=== PATIENT | female | born 1990 | race Caucasian/White ===

== ENCOUNTER 2020-02-17 20:44 | Emergency (ER) | payer OTHER ==
[~2020-02-17] VITALS: Ht 167.6 cm; Wt 69.9 kg
[2020-02-17 20:55] VITALS: BP_SYST 127
[2020-02-17 21:28] VITALS: BP_SYST 122
== END 2020-02-17 21:28 | disposition home or self-care (01) ==
LOC: SED 20:44
DX: G43.909 Migraine, unspecified, not intractable, without status migrainosus (principal)
CPT/HCPCS: 99283

== ENCOUNTER 2020-03-29 14:30 | Emergency (ER) | payer OTHER ==
[~2020-03-29] VITALS: Ht 170.2 cm; Wt 73.5 kg
--- NOTE | 2020-03-29 14:30 | NUR ---
Patient to ER bed 4 to gown for evaluation. Side rails up.
--- NOTE | 2020-03-29 14:33 | NUR ---
ER at bedside examining patient.
--- NOTE | 2020-03-29 14:35 | NUR ---
Pt presents to the ER for migraine, pain 10/10 w/ photophobia. Pt requesting stadol refill. Pt stable, vitals WNL.
[2020-03-29 14:53] VITALS: BP_SYST 130
[2020-03-29 15:06] VITALS: BP_SYST 130
--- NOTE | 2020-03-29 15:06 | NUR ---
Patient given written and verbal discharge instructions and verbalizes understanding. ER MD discussed with patient the results and treatment provided. Patient in stable condition. ID arm band removed. Rx of Stadol and Robitussin given. Patient educated on pain management and to follow up with PMD. Pain Scale 10/10 Opportunity for questions provided and answered. Medication side effect fact sheet provided.
== END 2020-03-29 15:06 | disposition home or self-care (01) ==
LOC: SED 14:30
DX: G43.909 Migraine, unspecified, not intractable, without status migrainosus (principal); R05 Cough; Z76.0 Encounter for issue of repeat prescription
CPT/HCPCS: 99282; J7030

== ENCOUNTER 2020-04-14 14:44 | Emergency (ER) | payer OTHER ==
[~2020-04-14] VITALS: Ht 167.6 cm; Wt 72.6 kg
--- NOTE | 2020-04-14 14:50 | NUR ---
Patient to ER bed 06 to gown for evaluation. Side rails up.
--- NOTE | 2020-04-14 14:52 | NUR ---
Patient arrived in the ED c/o headaches, nausea, vomiting and cough for the last few weeks. Denied any chest pain or shortness of breath. Denied any fevers and chills. Patient is alert and oriented x4, respirations even and unlabored, speaking in full sentences, and ambulating with a steady gait. VSS, pain level 8/10. Informed of the approximate wait time. Instructed to notify ED staff for any changes in condition or worsening of symptoms. Patient verbalized understanding.
[2020-04-14 15:02] VITALS: BP_SYST 112
--- NOTE | 2020-04-14 15:06 | NUR ---
BLAIR Pollock at bedside examining patient.
--- NOTE | 2020-04-14 15:13 | NUR ---
Administered Morphine Sulfate IM as ordered by Dr. Pollock. Patient tolerated the medications well. See eMAR for details.
[2020-04-14] MEDS ORDERED: MORPHINE 4 MG/ML INJ. SYRINGE IM ONE (15:15)
[2020-04-14 15:20] VITALS: BP_SYST 112
--- NOTE | 2020-04-14 15:20 | NUR ---
Patient given written and verbal discharge instructions and verbalizes understanding. ER MD discussed with patient the results and treatment provided. Patient in stable condition. ID arm band removed. Rx of Ibuprofen given. Patient educated on pain management and to follow up with PMD. Pain Scale 2/10. Opportunity for questions provided and answered. Medication side effect fact sheet provided.
== END 2020-04-14 15:20 | disposition home or self-care (01) ==
LOC: SED 14:44
DX: G43.901 Migraine, unspecified, not intractable, with status migrainosus (principal)
CPT/HCPCS: 96372; 99283; J2270

== ENCOUNTER 2020-04-18 20:16 | Emergency (ER) | payer OTHER ==
[~2020-04-18] VITALS: Ht 167.6 cm; Wt 70.8 kg
[2020-04-18 20:20] VITALS: BP_SYST 124
[2020-04-18] MEDS ORDERED: MORPHINE 4 MG/ML INJ. SYRINGE IVP ONE (20:45)
[2020-04-18] MEDS ORDERED: ONDANSETRON HCL 4 MG/2 ML VIAL IVP ONE (20:45)
[2020-04-18] MEDS ORDERED: SUMAtriptan SUCCINATE 50 MG TABLET PO ONE (20:45)
[2020-04-18] MEDS ORDERED: DIPHENHYDRAMINE INJ 50 MG/ML VIAL IVP ONE (21:15)
[2020-04-18 21:30] VITALS: BP_SYST 132
[2020-04-18] MEDS ORDERED: SUMAtriptan SUCCINATE 50 MG TABLET ONE (21:40)
== END 2020-04-18 21:30 | disposition home or self-care (01) ==
LOC: SED 20:16
DX: G43.901 Migraine, unspecified, not intractable, with status migrainosus (principal)
CPT/HCPCS: 96374; 96375; 99284; J1200; J2270; J2405

== ENCOUNTER 2020-11-30 04:11 | Emergency (ER) | payer OTHER ==
[~2020-11-30] VITALS: Ht 170.2 cm; Wt 71.7 kg
[2020-11-30 05:00] VITALS: BP_SYST 124
[2020-11-30 06:21] VITALS: BP_SYST 125
== END 2020-11-30 06:21 | disposition home or self-care (01) ==
LOC: SED 04:11
DX: G43.909 Migraine, unspecified, not intractable, without status migrainosus (principal); R05 Cough; Z88.1 Allergy status to other antibiotic agents
CPT/HCPCS: 99283

== ENCOUNTER 2020-12-04 20:25 | Emergency (ER) | payer OTHER ==
[~2020-12-04] VITALS: Ht 170.2 cm; Wt 63.5 kg
[2020-12-04 20:49] VITALS: BP_SYST 120
[2020-12-04 21:13] VITALS: BP_SYST 120
== END 2020-12-04 21:13 | disposition home or self-care (01) ==
LOC: SED 20:25
DX: Z76.0 Encounter for issue of repeat prescription (principal); Z88.1 Allergy status to other antibiotic agents
CPT/HCPCS: 99281

== ENCOUNTER 2020-12-26 02:05 | Emergency (ER) | payer OTHER ==
[~2020-12-26] VITALS: Ht 170.2 cm; Wt 71.7 kg
[2020-12-26 02:30] VITALS: BP_SYST 131
--- NOTE | 2020-12-26 02:33 | NUR ---
ER Dr. Roa at bedside examining patient. after examination patient walked out of emergency room.
== END 2020-12-26 02:23 | disposition left against medical advice (07) ==
LOC: SED 02:05
DX: Z76.0 Encounter for issue of repeat prescription (principal); Z88.1 Allergy status to other antibiotic agents
CPT/HCPCS: 99281

== ENCOUNTER 2020-12-26 23:39 | Emergency (ER) | payer OTHER ==
[~2020-12-26] VITALS: Ht 170.2 cm; Wt 71.7 kg
[2020-12-26 23:40] VITALS: BP_SYST 122
--- NOTE | 2020-12-26 23:40 | NUR ---
Received patient to Er w/ c/o cough and requesting medication refill. Patient seen yesterday for similar c/o but had eloped after being examined by ER MD. Introduced self to patient, positioned for comfort, continue to monitor. Patient resting quietly. No acute distress noted. Vital signs within normal range.
--- NOTE | 2020-12-26 23:45 | NUR ---
PT TO BED 5 FOR EVALUATION
--- NOTE | 2020-12-27 | NUR ---
Patient given written and verbal discharge instructions and verbalizes understanding. ER MD discussed with patient the results and treatment provided. Patient in stable condition. ID arm band removed. Opportunity for questions provided and answered. Medication side effect fact sheet provided. patient had left ER without her [employer] paper.
== END 2020-12-27 | disposition left against medical advice (07) ==
LOC: SED 23:39
DX: R05 Cough (principal); Z76.5 Malingerer [conscious simulation]; Z88.1 Allergy status to other antibiotic agents
CPT/HCPCS: 99281

== ENCOUNTER → 2021-10-30 | Emergency (ER) | payer OTHER ==
[~2021-10-30] VITALS: Ht 170.2 cm; Wt 74.8 kg
[2021-10-31 00:20] VITALS: BP_SYST 123
== END | disposition home or self-care (01) ==
LOC: SED 23:36
DX: R05.3 Chronic cough (principal); Z88.1 Allergy status to other antibiotic agents; Z88.8 Allergy status to other drugs, medicaments and biological substances; Z79.899 Other long term (current) drug therapy
CPT/HCPCS: 99281